=== PATIENT | female | born 1945 | race Caucasian/White ===

== ENCOUNTER 2024-08-23 12:39 | Emergency (ER) | payer BC, MEDICARE ==
[~2024-08-23] VITALS: Ht 162.6 cm; Wt 80.7 kg
[2024-08-23 12:50] VITALS: TEMP 98.6
[2024-08-23] MEDS ORDERED: IOHEXOL-350 100 ML VIAL IV ONE (13:07)
[2024-08-23 13:21] LABS: BASOPHILS % (AUTO) 0.3 % (0.0-2.0); HEMATOCRIT 39 % (33-45); HEMOGLOBIN 13.3 g/dL (11.5-14.8); LYMPHOCYTES # (AUTO) 0.7 K/uL (0.8-4.8); LYMPHOCYTES % (AUTO) 4.8 % (20.0-44.0); MEAN CORPUSCULAR HEMOGLOBIN 28 PG (26.0-33.0); MEAN CORPUSCULAR HGB CONC 35 g/dl (31.0-36.0); MEAN CORPUSCULAR VOLUME 82 fL (82-100); MONOCYTES # (AUTO) 0.9 K/uL (0.1-1.30); MONOCYTES % (AUTO) 6.3 % (2.0-12.0); NEUTROPHILS # (AUTO) 12.2 K/uL (1.8-8.9); NEUTROPHILS % (AUTO) 88.6 % (43.0-81.0); PLATELET COUNT (AUTO) 196 K/uL (150-450); WHITE BLOOD COUNT (AUTO) 13.8 K/uL (4.3-11.0)
[2024-08-23 13:26] LABS: CALCIUM, SERUM 9.3 mg/dL (8.5-10.1); CARBON DIOXIDE 24 mmol/L (21-32); CHLORIDE 100 mmol/L (98-107); CREATININE 0.8 mg/dL (0.6-1.3); GLUCOSE 193 mg/dL (74-106); POTASSIUM 3.3 mmol/L (3.5-5.1); SODIUM SERUM 137 mmol/L (136-145); UREA NITROGEN, BLOOD 11 mg/dL (7-18)
[2024-08-23 13:33] LABS: ALANINE AMINOTRANSFERASE 28 U/L (12-78); ALBUMIN 3.7 g/dL (3.4-5.0); ALKALINE PHOSPHATASE 82 U/L (46-116); ASPARTATE AMINOTRANSFERASE 27 U/L (15-37); BILIRUBIN,DIRECT 0.1 mg/dL (0.0-0.2); BILIRUBIN,TOTAL 0.5 mg/dL (0.2-1.0); LIPASE 17 U/L (16-77)
[2024-08-23 13:36] LABS: INR 1.02 (0.91-1.10); PARTIAL THROMBOPLASTIN TIME 23.7 SEC (24.3-34.3); PROTHROMBIN TIME 10.8 SECS (9.2-11.1)
[2024-08-23] MEDS: IV NS 0.9% 1,000 ML BAG IV ONE (14:00)
[2024-08-23] MEDS: ONDANSETRON HCL/PF 4 MG/2 ML VIAL IVP ONE (14:05)
[2024-08-23] MEDS: FAMOTIDINE/PF INJ 20 MG/2 ML VIAL IV ONE (14:10)
[2024-08-23] MEDS ORDERED: ONDANSETRON HCL/PF 4 MG/2 ML VIAL ONE (14:21)
[2024-08-23] MEDS ORDERED: FAMOTIDINE/PF INJ 20 MG/2 ML VIAL IV ONE (14:22)
[2024-08-23] MEDS: LEVETIRACETAM (500MG) 1,000 MG in PREMIX 90 EA IV SCH (14:37)
[2024-08-23 15:20] VITALS: BP 140/88; O2SAT 97
== END 2024-08-23 18:25 | disposition short-term general hospital (02) ==
LOC: ER 12:48
DX: I63.9 Cerebral infarction, unspecified (principal); E11.9 Type 2 diabetes mellitus without complications; R29.810 Facial weakness; R10.9 Unspecified abdominal pain; R11.2 Nausea with vomiting, unspecified; R41.82 Altered mental status, unspecified; R53.1 Weakness; R94.31 Abnormal electrocardiogram [ECG] [EKG]; Z88.5 Allergy status to narcotic agent
CPT/HCPCS: 99291; 70498; 96365; 96375; 71045; 96361; 93005; 70496; 85025; 80048; 83690; 80076; 36415; 84484; 85730; 82962; 70450; J3490; J2405; J7030; J1953; Q9967; A4216